=== PATIENT | male | born 1970 | race Caucasian/White ===

== ENCOUNTER 2020-09-15 13:27 | Emergency (ER) | payer OTHER ==
[2020-09-15] MEDS ORDERED: HYDROCHLOROTHIA25 MG PO (16:46)
== END 2020-09-15 18:35 | disposition home or self-care (01) ==
LOC: ER1 13:27
DX: I10 Essential (primary) hypertension (principal); M25.512 Pain in left shoulder
CPT/HCPCS: 71045; 93005; 99284

== ENCOUNTER 2020-10-04 13:10 | Emergency (ER) | payer OTHER ==
[~2020-10-04 13:10] MED LIST: HYDROCHLOROTHIA25 MG PO
[2020-10-04 13:57] LABS: HEMOGLOBIN 16.6 gm/dl (14.0-17.5); RED BLOOD COUNT 5.08 M/UL (4.20-5.50); WHITE BLOOD COUNT 7.7 K/UL (4.5-11.0)
[2020-10-04 14:15] LABS: BUN/CREATININE RATIO 12 (0-10)
== END 2020-10-04 18:02 | disposition home or self-care (01) ==
LOC: ER1 13:10
PROVIDERS: Physician Assistant
DX: R07.9 Chest pain, unspecified (principal); I10 Essential (primary) hypertension
CPT/HCPCS: 36415; 71045; 80053; 82550; 82553; 83874; 84484; 85025; 85379; 93005; 99285

== ENCOUNTER 2022-01-30 11:05 | Emergency (ER) | payer OTHER ==
[2022-01-30 12:38] LABS: HEMOGLOBIN 13.6 gm/dl (14.0-17.5); RED BLOOD COUNT 4.2 M/UL (4.20-5.50); WHITE BLOOD COUNT 5.6 K/UL (4.5-11.0)
[2022-01-30 12:59] LABS: BUN/CREATININE RATIO 12 (0-10)
== END 2022-01-30 16:55 ==
LOC: ER1 11:05
PROVIDERS: Physician Assistant
DX: S62.611B Displaced fracture of proximal phalanx of left index finger, initial encounter for open fracture (principal); Z23 Encounter for immunization; I10 Essential (primary) hypertension; E78.5 Hyperlipidemia, unspecified; Z79.82 Long term (current) use of aspirin; W31.2XXA Contact with powered woodworking and forming machines, initial encounter; Y92.009 Unspecified place in unspecified non-institutional (private) residence as the place of occurrence of the external cause
CPT/HCPCS: 29125; 73140; 80053; 85025; 90471; 90715; 96374; 96375; 96376; 99284; J0690; J2270; J2405